=== PATIENT | female | born 1955 | race Caucasian/White ===

== ENCOUNTER 2022-10-17 04:15 | Day surgery (SDC) | payer BC, OTHER ==
[2022-10-15 16:39] VITALS: BMI 31.4
[2022-10-17 13:20] VITALS: BP 121/56; PULSE 53; RESP 12; TEMP 98
== END 2022-10-17 13:36 | disposition home or self-care (01) ==
LOC: JASU-ENDO 04:15
PROVIDERS: ATTEND Internal Medicine Gastroenterology
PROC: 0DBL8ZX Excision of Transverse Colon, Via Natural or Artificial Opening Endoscopic, Diagnostic (ICD-10-PCS; 2022-10-17)
PROC: 0DBH8ZX Excision of Cecum, Via Natural or Artificial Opening Endoscopic, Diagnostic (ICD-10-PCS; 2022-10-17)
PROC: 0DBM8ZX Excision of Descending Colon, Via Natural or Artificial Opening Endoscopic, Diagnostic (ICD-10-PCS; principal; 2022-10-17 11:45)
DX: D12.3 Benign neoplasm of transverse colon (principal); K63.5 Polyp of colon; K59.89 Other specified functional intestinal disorders; K57.30 Diverticulosis of large intestine without perforation or abscess without bleeding; K64.8 Other hemorrhoids; I10 Essential (primary) hypertension
CPT/HCPCS: 88305-TC

== ENCOUNTER 2023-11-18 04:48 | Day surgery (SDC) | payer OTHER, MEDICARE ==
[2023-11-17 07:53] VITALS: BMI 32.1
[2023-11-18 09:09] VITALS: TEMP 98
[2023-11-18 09:45] VITALS: BP 100/67; PULSE 61; RESP 18
== END 2023-11-18 10:00 | disposition home or self-care (01) ==
LOC: JASU-ENDO 04:48
PROVIDERS: ATTEND Internal Medicine Gastroenterology
PROC: 3E0H8KZ Introduction of Other Diagnostic Substance into Lower GI, Via Natural or Artificial Opening Endoscopic (ICD-10-PCS; 2023-11-18)
PROC: 0DBL8ZX Excision of Transverse Colon, Via Natural or Artificial Opening Endoscopic, Diagnostic (ICD-10-PCS; principal; 2023-11-18 08:00)
DX: Z12.11 Encounter for screening for malignant neoplasm of colon (principal); D12.3 Benign neoplasm of transverse colon; K64.8 Other hemorrhoids; K57.30 Diverticulosis of large intestine without perforation or abscess without bleeding; Z86.010 Personal history of colon polyps; I10 Essential (primary) hypertension; Z98.890 Other specified postprocedural states
CPT/HCPCS: 88305-TC